=== PATIENT | male | born 1960 | race Caucasian/White ===

== ENCOUNTER 2024-09-30 06:28 | Day surgery (SDC) | payer OTHER ==
[~2024-09-30] VITALS: Ht 182.9 cm; Wt 96.2 kg
[~2024-09-30 06:28] MED LIST: CALCIUM-MAG-ZI1 EACH PO; IRON325 M1 PO; LEVOTHYROXINE200 MC2 PO; MIDAZOLAM HCL 5 MG/5 ML VIAL IV PRN; MIDAZOLAM HCL 5 MG/5 ML VIAL ONE; TRANSDERM-SCOP1 EACH TD; fentaNYL citrate 100 MCG/2 ML VIAL IV PRN; fentaNYL citrate 100 MCG/2 ML VIAL ONE
[2024-09-30 06:49] VITALS: BP 132/74
[2024-09-30] MEDS ORDERED: VITAMIN C100 MG PO (06:53)
[2024-09-30] MEDS ORDERED: MAGNESIUM250 M1 PO (06:53)
[2024-09-30] MEDS ORDERED: MULTIVITAMIN1 EACH PO (06:53)
[2024-09-30] MEDS ORDERED: VITAMIN D310 MC1 PO (06:54)
[2024-09-30] MEDS ORDERED: LACTATED RINGER'S 1,000 ML IV SCH (07:00)
[2024-09-30] MEDS ORDERED: LIDOCAINE HCL 1% 5 ML SDV INJ ONE (07:00)
[2024-09-30] MEDS ORDERED: IBLOOD GLUCOSE TEST STRIP 1 EA TEST VI PRN (07:00)
[2024-09-30 08:07] VITALS: BP 117/80
--- NOTE | 2024-09-30 08:30 | NUR ---
09/30/24 0830 Olamide George 0775 PT ARRIVED IN PACU WIDE AWAKEN. ABD SOFT AND PASSING FLATUS. 0800 DR AT BEDSIDE. 0805 SITTING UP IN BED SIPPING ON JUICE. 0810 DC INSTRUCTIONS GIVEN. ALL QUESTIONS ANSWERED. 0818 LEFT VIA W/C.
--- NOTE | 2024-09-30 08:46 | OR ---
[facility] [address], [place] [address] Signed DATE OF OPERATION: 09/30/2024 SURGEON: Gloria Watters MD PREOPERATIVE DIAGNOSIS: Father with colon cancer in his 70s. POSTOPERATIVE DIAGNOSIS: Minimal internal hemorrhoids. PROCEDURE: Colonoscopy without biopsy. ESTIMATED BLOOD LOSS: None. INDICATIONS: Amor is a 63-year-old gentleman asked to see me for a followup colonoscopy. He has been estranged from his father for over 20 years. Through a cousin, he found out his dad had colon cancer in his 70s. Amor had a colonoscopy back in 2012 at [facility] in [place], [place]. He remembers it was negative. Of course, we do not have those records. He was told to come back in 10 years. He has no lower GI complaints. In the office, I gave him a pamphlet on colonoscopy. We reviewed the nature of the test. There is risk including, but not limited to gas bloating, crampy abdominal pain, bleeding, perforation requiring surgery, and missed diagnosis. We also reviewed the written instructions for our bowel prep line by line. We had him hold his iron tablets the week before the procedure. He said he has been on iron tablets for probably a decade. He is not sure that he needs them anymore. We also reviewed the need for IV conscious sedation. He said his would take him home afterwards. I also explained to Amor that if his father indeed had colon cancer then he should come every five years for colonoscopy. He had expressed understanding and wished to proceed. DESCRIPTION OF PROCEDURE: Amor was taken into our endoscopy suite and placed in the left lateral decubitus position. He was given a total of 4 mg of Versed and 150 mcg of fentanyl to cover the case. A digital rectal exam was performed. There were no external hemorrhoids. He had good sphincter tone. There were no masses. The adult colonoscope was introduced and advanced all the way around into the cecum under direct visualization of camera without difficulty. He had some areas of liquid particulate stool matter. Most of which was suctioned out. He might increase the polyethylene glycol in the future up to 3/4 or Electronically Signed By: GLORIA WATTERS MD 09/30/24 0846 PATIENT NAME: AMOR QUEZADA OPERATIVE REPORT DATE OF : 64 REPORT #: [id number] PHYSICIAN: GLORIA WATTERS MD PCP: ZOYA FREY MD REPORT IS CONFIDENTIAL AND NOT TO BE RELEASED WITHOUT AUTHORIZATION [facility] [address], [place] [address] Signed even a full gallon along with Dulcolax tablets. With a little bit of abdominal compression, we made it right into the cecum. We could easily see the appendiceal orifice and ileocecal valve. The scope was then slowly withdrawn. We took several pictures throughout for photodocumentation. We found no pathology throughout the entire colon or rectum. Upon retroflexion of scope he has very minimal internal hemorrhoid columns. After this, the gas was suctioned out, colonoscope removed. Amor tolerated the procedure quite well. RECOMMENDATIONS: Amor can follow up in 5 years for repeat colonoscopy due to his family history. He might increase the polyethylene glycol up to 3/4 or even a full gallon along with some Dulcolax tablets. Gloria Watters MD ALB/MODL /[id number] cc: MD Zoya Edge MD Copies: GLORIA WATTERS MD, RUSSELL BARR MD ~ Electronically Signed By: GLORIA WATTERS MD 09/30/24 0846 PATIENT NAME: AMOR QUEZADA OPERATIVE REPORT DATE OF : 64 REPORT #: [id number] PHYSICIAN: GLORIA WATTERS MD PCP: ZOYA FREY MD REPORT IS CONFIDENTIAL AND NOT TO BE RELEASED WITHOUT AUTHORIZATION
== END 2024-09-30 08:18 | disposition home or self-care (01) ==
LOC: DS 06:28
PROVIDERS: ATTEND Colon & Rectal Surgery
PROC: 0DJD8ZZ Inspection of Lower Intestinal Tract, Via Natural or Artificial Opening Endoscopic (ICD-10-PCS; principal; 2024-09-30 08:15)
DX: Z12.11 Encounter for screening for malignant neoplasm of colon (principal); Z80.0 Family history of malignant neoplasm of digestive organs; K64.8 Other hemorrhoids; E03.9 Hypothyroidism, unspecified; R25.1 Tremor, unspecified; Z79.890 Hormone replacement therapy; Z79.899 Other long term (current) drug therapy
CPT/HCPCS: G0105; 99153; G0500; J2250; J3010